=== PATIENT | male | born 1950 | race Caucasian/White ===

== ENCOUNTER → 2020-08-30 | Outpatient (CLI) | payer OTHER ==
[~2020-08-30] MED LIST: Alprazolam Xr0.5 MG PO; BENAML20/5; CALCA500CH PO; CAPS28.3TC TOP; FINA5 PO; FLAX PO; HYDCOR2.5C PR; HYDR1TAB94 PO; HYDR25SUP PR; LACT10SY PO; LISI20 PO; MULTI VITAMIN1 EACH PO; MULVITMIND; NAPR500 PO; Naprosyn500 MG PO; Norco 5-325 Ta1 EACH PO; TAMS.4ER PO; TOCO400 PO; TRAM50 PO; ULTRA-LIGHT RO1 EACH MC; Ultram50 MG PO; Vitamin C100 M1 PO; ZINC15 PO; [UNRECOGNIZED DRUG - REMARK]
== END | disposition home or self-care (01) ==
LOC: LAB SHORT 16:24
DX: N39.0 Urinary tract infection, site not specified (principal)
CPT/HCPCS: 87086

== ENCOUNTER → 2020-12-18 | Outpatient (CLI) | payer OTHER ==
[~2020-12-18] MED LIST changes: -HYDR1TAB94 PO
== END ==
LOC: LAB 17:35 → LAB SHORT 17:35
DX: R30.0 Dysuria (principal)
CPT/HCPCS: 87077; 87086; 87186

== ENCOUNTER 2021-03-03 14:44 | Emergency (ER) | payer OTHER ==
[~2021-03-03] VITALS: Ht 175.3 cm; Wt 78.0 kg
[2021-03-03] MEDS ORDERED: HYDR1TAB94 PO (16:41)
== END 2021-03-03 17:00 | disposition home or self-care (01) ==
LOC: ER 14:44
DX: S01.512A Laceration without foreign body of oral cavity, initial encounter (principal); S50.12XA Contusion of left forearm, initial encounter; Z79.899 Other long term (current) drug therapy; W01.10XA Fall on same level from slipping, tripping and stumbling with subsequent striking against unspecified object, initial encounter
CPT/HCPCS: 36415; 70450; 72125; 90714; 93005; 93010; 99284-25; A9270; J1885

== ENCOUNTER 2021-03-15 18:45 | Emergency (ER) | payer OTHER ==
[~2021-03-15] VITALS: Ht 175.3 cm; Wt 80.7 kg
[~2021-03-15 18:45] MED LIST changes: +HYDR1TAB94 PO
== END 2021-03-15 20:20 | disposition home or self-care (01) ==
LOC: ER 18:45
DX: F07.81 Postconcussional syndrome (principal); S00.83XA Contusion of other part of head, initial encounter; Z79.899 Other long term (current) drug therapy
CPT/HCPCS: 36415; 93005; 93010; 99285-25

== ENCOUNTER 2021-12-07 02:03 | Inpatient (IN) | payer OTHER ==
[~2021-12-07] VITALS: Ht 175.3 cm; Wt 73.4 kg
[~2021-12-07 02:03] MED LIST changes: +Calcium Carbon500 MG PO
[2021-12-07] MEDS ORDERED: METHOTREXATE2.5 M1 PO (02:24)
[2021-12-07 03:18] LABS: BASOPHILS ABSOLUTE AUTO 0.06 K/mm3 (0.00-0.23); BASOPHILS PERCENT AUTO 0 % (0-2); EOSINOPHILS ABSOLUTE AUTO 0.08 K/mm3 (0.00-0.68); EOSINOPHILS PERCENT AUTO 0 % (0-6); Hematocrit 31.8 % (37.0-53.0); Hemoglobin 10.5 g/dL (13.5-17.5); IMMATURE GRAN ABSOLUTE AUTO 0.22 K/mm3 (0.00-0.10); IMMATURE GRAN PERCENT AUTO 1 % (0-1); LYMPHOCYTES ABSOLUTE AUTO 0.92 K/mm3 (0.84-5.20); LYMPHOCYTES PERCENT AUTO 5 % (21-46); MONOCYTES ABSOLUTE AUTO 1.17 K/mm3 (0.16-1.47); MONOCYTES PERCENT AUTO 6 % (4-13); Mean Corpuscular HGB 30.3 pg (26.0-34.0); Mean Corpuscular Volume 92 fL (80-100); NEUTROPHILS ABSOLUTE AUTO 17.69 K/mm3 (1.96-9.15); NEUTROPHILS PERCENT AUTO 88 % (41-73); RDW Coefficient Variation 16.3 % (11.7-14.2); RDW Standard Deviation 53.4 fL (35.1-46.3); Red Blood Cell Count 3.46 M/mm3 (4.30-5.90); White Blood Cell Count 20.14 K/mm3 (4.00-11.30)
[2021-12-07 03:19] LABS: Mean Platelet Volume 9.5 fL (9.1-12.4); Platelet Count 504 K/mm3 (150-400)
[2021-12-07 03:36] LABS: Alanine Aminotransfer (ALT/SGP 31 U/L (12-78); Albumin, Blood 2.4 g/dL (3.4-5.0); Albumin/Globulin Ratio 0.4 (0.8-1.8); Alk Phos 95 U/L (50-136); Anion Gap 11 mmol/L (6-16); Aspartate Aminotrans (AST/SGOT 52 U/L (12-37); Bilirubin, Total 1.2 mg/dL (0.1-1.0); Blood Urea Nitrogen 11 mg/dL (8-24); Bun/Creatinine Ratio 12.2 (12.0-20.0); CO2, Blood 25 mmol/L (21-32); Calcium, Blood 9.2 mg/dL (8.5-10.1); Chloride, Blood 99 mmol/L (98-108); Globulin, Blood 5.9 g/dL (2.2-4.0); Glomerular Filtration Rate >60 (60-); Glucose, Blood 108 mg/dL (70-99); Potassium, Blood 3.3 mmol/L (3.5-5.5); Sodium, Blood 135 mmol/L (136-145); Total Protein, Blood 8.3 g/dL (6.4-8.2)
[2021-12-07 03:59] LABS: C-Reactive Protein, High Sens. >190.000 mg/L (0.000-3.000)
[2021-12-07 05:49] LABS: Influenza A, PCR NEGATIVE (NEGATIVE); Influenza B, PCR NEGATIVE (NEGATIVE); Resp Syncytial Virus, PCR NEGATIVE (NEGATIVE); SARS-Cov-2 (COVID-19) PCR, MMC NEGATIVE (NEGATIVE)
[2021-12-07 07:53] LABS: Anti-Xa UFH, PHA Monitoring <0.10 IU/mL; International Normalized Ratio 1.36
--- NOTE | 2021-12-07 09:45 | NUR ---
PT ADMITTED TO ROOM 363 VIA GURNEY FROM ED. ASSISTED TO COMMODE ON ARRIVAL AND CLEANED UP. HAD A SMALL AMOUNT OF LOOSE STOOL. STATED HE NEEDED TO VOID BUT NO VOID ON COMMODE. ASSISTED TO BED AND SETTLED IN. BREAKFAST GIVEN AND EATEN. REPORTED HE FELT BETTER AFTER EATING. STATED HE HASN'T EATEN MUCH IN LAST SEVERAL DAYS/WEEKS DUE TO NOT HAVING ANYTHING TO EAT OTHER THAN BANANA NUT MUFFINS FROM THE [employer] HE LIVES AT. BUTTOCKS APPEARED BURNED ON ARRIVAL TO DUE UNDERWEAR BEING DIRTY FROM STOOL.
[2021-12-07 11:13] LABS: Source, Urine Clean Catch
[2021-12-07 11:23] LABS: Appearance, Urine Clear (Clear); Bilirubin, Urine Neg (Neg); Blood, Urine 1+ (Neg); Color, Urine Yellow (P-Yellow); Glucose Qualitative, Urine Neg (Neg); Ketones, Urine Neg (Neg); Leukocyte Esterase, Urine 1+ (Neg); Nitrite, Urine Neg (Neg); Protein, Urine 2+ (Neg); Urobilinogen, Urine 1+ (Normal)
[2021-12-07 11:33] LABS: Bacteria Mod /hpf; Red Blood Cells, Urine 0-2 /hpf (0-2); Squamous Epithelial Cells Many /hpf (Few)
[2021-12-07] MEDS ORDERED: GALZIN50 MG PO (11:41)
--- NOTE | 2021-12-07 19:28 | NUR ---
SHIFT SUMMARY PT USING URINAL DURING THE DAY. VOIDING ONLY 100-150ML AT A TIME. BLADDER SCANNED THIS EVENING FOR >973. STOOD TO VOID MORE BUT ONLY VOIDED 100ML. DARK CATRACHITA URINE OUT. R HEEL DRAINING SEROSANGUINESS THRUGH DRESSING AND WAS CHANGED. REPORTS HE HASN'T EATEN MUCH IN LAST SEVERAL WEEKS DUE TO INABILITY TO OBTAIN FOOD SO HE DOESN'T HAVE A BIG APPETITE. DR. RAMIREZ IN THIS MORNING WITH PLANS TO I AND D R HEEL TOMORROW. HEPARIN UNCHANGED AFTER AFTERNOON BLOOD DRAW.
--- NOTE | 2021-12-08 04:43 | NUR ---
PT IS A/OX3, PLEASANT AND COOPERATIVE, PALE IN COLOR. THE PT APPEARS TO BE BREATHING EASILY ON RA AT THIS TIME. THE PT WAS MEDICATED FOR BACK PAIN WITH TYLENOL X1 SO FAR THIS SHIFT. THE PT WAS STRAIGHT CATHED DUE TO RETENTION AT THE START OF THE SHIFT, 1100 CC DRAINED. PT WAS MADE NPO AFTER MIDNIGHT. CALL LIGHT IN REACH, WILL CONTINUE TO MONITOR AND ASSESS FOR CHANGES.
[2021-12-08 06:20] LABS: BASOPHILS ABSOLUTE AUTO 0.02 K/mm3 (0.00-0.23); BASOPHILS PERCENT AUTO 0 % (0-2); EOSINOPHILS ABSOLUTE AUTO 0.11 K/mm3 (0.00-0.68); EOSINOPHILS PERCENT AUTO 1 % (0-6); Hematocrit 24.3 % (37.0-53.0); Hemoglobin 8.4 g/dL (13.5-17.5); IMMATURE GRAN ABSOLUTE AUTO 0.19 K/mm3 (0.00-0.10); IMMATURE GRAN PERCENT AUTO 1 % (0-1); LYMPHOCYTES ABSOLUTE AUTO 1.43 K/mm3 (0.84-5.20); LYMPHOCYTES PERCENT AUTO 10 % (21-46); MONOCYTES ABSOLUTE AUTO 0.71 K/mm3 (0.16-1.47); MONOCYTES PERCENT AUTO 5 % (4-13); Mean Corpuscular HGB 30.8 pg (26.0-34.0); Mean Corpuscular HGB Conc 34.6 g/dL (31.5-36.5); Mean Corpuscular Volume 89 fL (80-100); Mean Platelet Volume 9.3 fL (9.1-12.4); NEUTROPHILS ABSOLUTE AUTO 12.04 K/mm3 (1.96-9.15); NEUTROPHILS PERCENT AUTO 83 % (41-73); Platelet Count 470 K/mm3 (150-400); RDW Coefficient Variation 16.3 % (11.7-14.2); RDW Standard Deviation 51.9 fL (35.1-46.3); Red Blood Cell Count 2.73 M/mm3 (4.30-5.90)
[2021-12-08 06:35] LABS: Anion Gap 6 mmol/L (6-16); Blood Urea Nitrogen 13 mg/dL (8-24); Bun/Creatinine Ratio 17.2 (12.0-20.0); CO2, Blood 26 mmol/L (21-32); Calcium, Blood 8.5 mg/dL (8.5-10.1); Chloride, Blood 108 mmol/L (98-108); Creatinine, Blood 0.76 mg/dL (0.60-1.20); Glomerular Filtration Rate >60 (60-); Glucose, Blood 97 mg/dL (70-99); Sodium, Blood 140 mmol/L (136-145)
[2021-12-08 17:03] LABS: Vancomycin, Trough 13.5 ug/mL (5.0-10.0)
--- NOTE | 2021-12-08 17:05 | NUR ---
SHIFT SUMMARY PT NPO TODAY INTIL IT WAS KNOWN THAT I AND D OF R HEEL WASN'T GOING TO BE COMPLETED BUT RATHER A RBKA WAS RECOMMENDED BY PODIATRY. ORTHO CONSULT CALLED IN TO CALL CENTER. PT REPORTING HE IS SO TIRED AND DOESN'T FEEL WELL. DRESSING INTACT TO RLE WITH NO BREAKTHROUGH DRAINAGE. HASN'T VOIDED TODAY AND BLADDER SCANNED FOR 401ML. HASN'T BEEN DRINKING TODAY DUE TO NPO STATUS. MD ORDERED HUFFMAN TO STAY WITH NEXT STRAIGHT CATH. PT REPORTS MOTHER IS COMING IN WITH ONE OF THE WORKERS AT THEIR [employer] SOMETIME THIS EVENING. DOES HAVE A TENDANCY TO REPEAT HIMSELF FREQUENTLY.
[2021-12-08 17:58] LABS: Source, Urine Foley catheter
[2021-12-08 18:12] LABS: Bilirubin, Urine Neg (Neg); Blood, Urine 4+ (Neg); Color, Urine Yellow (P-Yellow); Glucose Qualitative, Urine Neg (Neg); Ketones, Urine Neg (Neg); Leukocyte Esterase, Urine Neg (Neg); Nitrite, Urine Neg (Neg); Protein, Urine 4+ (Neg); Urobilinogen, Urine NORM (Normal); pH, Urine 6.5 (5.0-8.0)
[2021-12-08 18:20] LABS: Appearance, Urine Hazy (Clear)
[2021-12-08 18:21] LABS: Bacteria Mod /hpf; Squamous Epithelial Cells Few /hpf (Few)
[2021-12-09 04:29] LABS: BASOPHILS ABSOLUTE AUTO 0.04 K/mm3 (0.00-0.23); BASOPHILS PERCENT AUTO 0 % (0-2); EOSINOPHILS PERCENT AUTO 2 % (0-6); Hematocrit 22.9 % (37.0-53.0); Hemoglobin 7.8 g/dL (13.5-17.5); IMMATURE GRAN ABSOLUTE AUTO 0.19 K/mm3 (0.00-0.10); IMMATURE GRAN PERCENT AUTO 2 % (0-1); LYMPHOCYTES PERCENT AUTO 14 % (21-46); MONOCYTES ABSOLUTE AUTO 0.55 K/mm3 (0.16-1.47); MONOCYTES PERCENT AUTO 5 % (4-13); Mean Corpuscular HGB 30.7 pg (26.0-34.0); Mean Corpuscular HGB Conc 34.1 g/dL (31.5-36.5); Mean Corpuscular Volume 90 fL (80-100); Mean Platelet Volume 9.5 fL (9.1-12.4); NEUTROPHILS ABSOLUTE AUTO 9.64 K/mm3 (1.96-9.15); NEUTROPHILS PERCENT AUTO 78 % (41-73); Platelet Count 502 K/mm3 (150-400); RDW Coefficient Variation 16.6 % (11.7-14.2); RDW Standard Deviation 54.3 fL (35.1-46.3); Red Blood Cell Count 2.54 M/mm3 (4.30-5.90); White Blood Cell Count 12.32 K/mm3 (4.00-11.30)
[2021-12-09 04:43] LABS: Anion Gap 8 mmol/L (6-16); Blood Urea Nitrogen 10 mg/dL (8-24); Bun/Creatinine Ratio 14.5 (12.0-20.0); CO2, Blood 22 mmol/L (21-32); Calcium, Blood 8.1 mg/dL (8.5-10.1); Chloride, Blood 111 mmol/L (98-108); Creatinine, Blood 0.69 mg/dL (0.60-1.20); Glomerular Filtration Rate >60 (60-); Glucose, Blood 96 mg/dL (70-99); Potassium, Blood 3.2 mmol/L (3.5-5.5); Sodium, Blood 141 mmol/L (136-145)
--- NOTE | 2021-12-09 07:54 | NUR ---
PM SHIFT SUMMARY PATIENT DID NOT HAVE MANY NEEDS DURING SHIFT. HUFFMAN IN PLACE AND DRAINING EFFECTIVELY. HEPARIN DRIP WAS INCREASED TO 24 U/KG/HR. ORTHOPEDIC SURGEON WILL BE BY TO SPEAK WITH HIM TODAY ABOUT THE BKA PROCEDURE. PATIENT LIVES AT [facility] WITH HIS 93 YEAR OLD MOTHER, SO HE WILL NEED MORE CARE AFTER SURGERY. HE SLEPT VAST MAJORITY OF SHIFT.
[2021-12-09 12:45] LABS: International Normalized Ratio 1.19; Prothrombin Time Results 12.4 Sec (9.7-11.5)
--- NOTE | 2021-12-09 14:07 | NUR ---
12/09/21 1407 Charity Queen 950ML REMOVED FROM HUFFMAN CATHETER AT ROOM IN
--- NOTE | 2021-12-09 19:50 | NUR ---
1522 RETURNED FROM PACU, SLEEPY BUT AROUSES EASILY. [address] GOULD WHO WILL ORDER PAIN MEDS. I MADE CALL TO DR REDDY, SHE STATES SHE WOULD CALL DR GOULD TO ADRESS RESTARTING HEPARIN GTT. PLAN TO START TOMORROW. STUMP IS WRAPPED WITH NO SHADOW. PT STATES PAIN 8/10 BUT FELL ASLEEP WITHIN MINUTES. WILL ARGENIS FOR PAIN. CALLED HIS MOM AT [facility] AND UPDATED PER PT REQUEST.
--- NOTE | 2021-12-09 19:53 | NUR ---
SUMMARY- PT A/O X4, HAD R BKA TODAY WITH DR REDDY. RETURNED TO ROOM AT 1522, BP ELEVATED BUT CAME DOWN NICELY WITHIN HOURS. MEDICATED LORTAB FOR PAIN, STATES PARTIAL RELEIF OF 710. TOLERATING FLUIDS AND A FEW BITES OF SOLIDS. NO NAUSEA. REQ FOR PRUNE JUICE. STATES HAST BM A FEW DAYS AGO. LUNGS CLEAR, ROOM AIR. USES CALL LIGHT. LEG ELEVATED WHEN HE DOESNT REQ HIS HEAD UP; REPORTED ALL TO NIGHT SHIRT. DVT RUL, PLAN TO RESTART HEPARIN TOMORROW.
[2021-12-10 04:18] LABS: BASOPHILS ABSOLUTE AUTO 0.01 K/mm3 (0.00-0.23); BASOPHILS PERCENT AUTO 0 % (0-2); EOSINOPHILS ABSOLUTE AUTO 0.01 K/mm3 (0.00-0.68); EOSINOPHILS PERCENT AUTO 0 % (0-6); Hematocrit 23.7 % (37.0-53.0); Hemoglobin 7.9 g/dL (13.5-17.5); IMMATURE GRAN ABSOLUTE AUTO 0.21 K/mm3 (0.00-0.10); IMMATURE GRAN PERCENT AUTO 2 % (0-1); LYMPHOCYTES ABSOLUTE AUTO 1.14 K/mm3 (0.84-5.20); LYMPHOCYTES PERCENT AUTO 11 % (21-46); MONOCYTES ABSOLUTE AUTO 0.48 K/mm3 (0.16-1.47); MONOCYTES PERCENT AUTO 4 % (4-13); Mean Corpuscular HGB Conc 33.3 g/dL (31.5-36.5); Mean Corpuscular Volume 90 fL (80-100); Mean Platelet Volume 9.5 fL (9.1-12.4); NEUTROPHILS ABSOLUTE AUTO 8.94 K/mm3 (1.96-9.15); NEUTROPHILS PERCENT AUTO 83 % (41-73); Platelet Count 508 K/mm3 (150-400); RDW Standard Deviation 55.3 fL (35.1-46.3); RETICULOCYTE COUNT PERCENT 0.93 % (0.50-2.50); Red Blood Cell Count 2.63 M/mm3 (4.30-5.90); White Blood Cell Count 10.79 K/mm3 (4.00-11.30)
[2021-12-10 05:16] LABS: Anion Gap 6 mmol/L (6-16); Blood Urea Nitrogen 10 mg/dL (8-24); Bun/Creatinine Ratio 13.4 (12.0-20.0); CO2, Blood 24 mmol/L (21-32); Calcium, Blood 8.2 mg/dL (8.5-10.1); Chloride, Blood 112 mmol/L (98-108); Creatinine, Blood 0.75 mg/dL (0.60-1.20); Glomerular Filtration Rate >60 (60-); Glucose, Blood 130 mg/dL (70-99); Potassium, Blood 3.4 mmol/L (3.5-5.5); Sodium, Blood 142 mmol/L (136-145)
--- NOTE | 2021-12-10 05:43 | NUR ---
CIVIL ENGINEERING ASSISTANT SUMMARY PT IS ZERO DAYS POST RIGHT BKA. AMPUTATION STOCKING IN PLACE AND C/D/I. PT REPORTS 8/10 PAIN TO THE RIGHT LOWER EXTREMITY THAT IS IMPROVED WITH OXYCODONE AND ELEVATING THE LIMB ON A PILLOW. PT MEDICATED X2 FOR PAIN AND HAS BEEN SLEEPING THROUGHOUT THE SHIFT. HE IS RECEIVING IV ABX THERAPY. ALERT AND ORIENTED X4 WHEN AWAKE BUT HAS BEEN SOMNOLENT AFTER PAIN MEDICATION. HUFFMAN IN PLACE AND DRAINING CLEAR YELLOW URINE. PT ALSO HAS DVT TO THE RIGHT UPPER LEG AND WILL BE RESTARTED ON HEPARIN DRIP 12/10/21 ACCORDING TO REPORT FROM PREVIOUS NURSE. HE IS TOLERATING FRUIT AND APPLE SAUCE WITHOUT NAUSEA.
--- NOTE | 2021-12-10 10:24 | NUR ---
Patient gaave this pharmacy student permission to perform care.
[2021-12-10 16:52] LABS: Vancomycin, Trough 15.6 ug/mL (5.0-10.0)
--- NOTE | 2021-12-10 20:03 | NUR ---
SUMMARY- PT ALERT X3, FORGETFUL, REPEATS HIMSELF. R BKA 12/09, SURGICAL DRESSING INTACT WITH SLEAVE OVER STUMP WITH NO VISIBLE DRAINAGE. DR MC AT BEDSIDE APPROX 1630 TO EVAL WOUND AND CHANGE DRESSING. PT WORKED WITH PT/OT TODAY. L LEG WEAK AND NOT ADVISED TO STAND EXCEPT WITH GARRETT LIFT. HEPARIN GTT RESTARTED THIS PM. PAIN CONTROLLED WITH LORTAB 10'S. HUFFMAN DC'D 0930 AND PT DID NOT FEEL THE NEED TO VOID ALL DAY. WHEN ASKED TO TRY 1800 HE WAS UNABLE. WILL BLADDER SCAN PRN AND ST CATH >300ML. PT'S MOM THAT WAS LIVING AT [place] [id number] WAS PICKED UP TODAY BY PT'S MEDINA AND TAKEN TO [place] WHERE SHE CAN BE CARED FOR. HEALTH CARE TECHNICIAN PLACED IN HOPES THAT FAMILY CAN BE GIVEN RESOURCES FOR INCREASED ASSISTANCE AFTER PT REHABILITATED AND SON CAN AGAIN LIVE WITH MOM IN REGULAR HOUSIHNG. HAS MONEY, BUT NEEDS ASSIST WITH RESOURCES.
--- NOTE | 2021-12-11 05:03 | NUR ---
PRODUCTION RECOVERY OPERATOR SUMMARY PT HAVING DIFFICULTY URINATING. BLADDER SCAN PERFORMED AT START OF SHIFT SHOWING 788. PT WAS STRAIGHT CATHED WITH 700 ML OF OUTPUT. HE CONTINUES TO BE UNABLE TO URINATE DESPITE MULTIPLE TRIES. HE REPORTS CONTINUED PAIN TO THE RLE MANAGED WITH HYDROCODONE AND TYLENOL. PT HAS DIFFICULTY REPOSITIONING AND APPEARS UPSET ABOUT HIS BKA. ALERT AND ORIENTED. COOPERATIVE WITH INSTRUCTION BUT FLAT AFFECT. UPSET AT TIMES AND APPEARS HOPELESS.
[2021-12-11 08:13] LABS: Hematocrit 26.7 % (37.0-53.0)
[2021-12-11 13:21] LABS: Stool Occult Blood Guaiac 1 Neg (Neg)
--- NOTE | 2021-12-11 20:01 | NUR ---
END OF SHIFT SUMMARY: PATIENT CONTINUED TO HAVE DIFFICULTY WITH VOIDING THROUGHOUT THE DAY. [place] [facility] [place] VOID ABOUT 25ML INTO THE URINAL. OTHERWISE, PATIENT REQUIRED STRAIGHT CATHETERIZATION. HOME MEDICATIONS RESTARTED TO ASSIST. PATIENT WORKED WITH PT AND OT. PATIENT DENIED APPETITE IN THE MORNING, BUT ATE ALMOST HIS FULL DINNER. PATIENT'S NIECE (JENNY: [phone]) IS WATCHING THE PATIENT'S 93 Y/O. SHE HAS CONCERNS ABOUT THIS SITUATION AND REPORTS THAT SHE WILL NOT BE ABLE TO CARE FOR HER AUNT FOR A LONG TIME. THE PATIENT REPORTS THAT HE WOULD LIKE TO BE ABLE TO BE PLACED WITH HIS MOTHER IN A FACILITY IF ABLE. PATIENT REPORTED THIS MORNING THAT HIS HEAD WAS FEELING "FUZZY". PATIENT AT TIMES WOULD REPEAT HIS STATEMENTS AND SEEM TO PERSEVERATE ON CERTAIN THINGS, SUCH "I JUST NEED TO GET ORGANIZED". PATIENT ABLE TO DISCUSS HIS CARE, PLAN OF CARE, HEALTH HISTORY, FOLLOW DIRECTIONS AND LET HIS NEEDS BE KNOWN. PATIENT REPORTED TO RN THAT HE IS AT HIS BASELINE AND THAT HE DOES REPEAT HIMSELF LIKE THIS. MONITORED THROUGHOUT THE DAY. NO CHANGES TO NEURO STATUS. PATIENT'S MENTATION IMPROVED THROUGHOUT THE DAY. PATIENT HAVING CLEAR CONVERSATIONS WITH THE RN ABOUT HIS PAST AND HIS WISHES FOR THE FUTURE.
--- NOTE | 2021-12-12 01:16 | NUR ---
BLADDER SCAN PERFORMED AT APPROX 0015, READ 726ML. ENCOURAGED PATIENT TO TRY TO URINATE, PT UNABLE TO. STRAIGHT CATH PERFORMED AT THAT TIME.
--- NOTE | 2021-12-12 01:27 | NUR ---
RECEIVED REPORT AND ASSUMED CARE OF PT. HE IS LYING IN BED, AWAKE AND ALERT. REPORTS FEELING SIGNIFICANTLY BETTER AFTER 750 ML OUT VIA STRAIGHT CATH. CALL LIGHT IN REACH. TM.
--- NOTE | 2021-12-12 06:28 | NUR ---
SHIFT SUMMARY: DAVID IS A&OX4 WITH SOME EPISODES OF FIXATING ON STATEMENTS AND DIFFICULTY MOTIVATING SELF TO DO TASKS THAT HE REPORTS BEING FEARFUL OF, SUCH MOVING TO THE BEDSIDE COMMODE. HE IS A HEAVY TWO-PERSON ASSIST TO THE BEDSIDE COMMODE, DOES NOT FOLLOW DIRECTIONS. UNABLE TO URINATE THIS AM OR HAVE A BM, BLADDER SCAN SHOWS 876. WILL STRAIGHT CATH. TOLERATING PO INTAKE WELL, REPORTS DECREASED APPETITE. PT DECONDITIONED. PT IS LYING IN BED WITH HIS CALL LIGHT IN REACH. WILL REPORT TO DAY SHIFT RN.
--- NOTE | 2021-12-12 07:00 | NUR ---
ASSUMED CARE: RN AT BEDSIDE PLACING STRAIGHT CATH. PT ALERT AND DOES NOT SEEM TO BE IN ANY DISTRESS AT THIS TIME.
[2021-12-12 07:25] LABS: Hematocrit 26.5 % (37.0-53.0); Hemoglobin 8.8 g/dL (13.5-17.5)
--- NOTE | 2021-12-12 07:40 | NUR ---
ASSUMED CARE: PT IS AWAKE, RN AT BEDSIDE FOR STRAIGHT CATH. NSR OF 65 ON TELE. NO ACUTE NEEDS/DISTRESS AT THIS TIME
--- NOTE | 2021-12-12 08:03 | NUR ---
PT C/O STINGING FROM URETHRA AFTER STRAIGHT CATH WAS DONE. HUFFMAN BAG WAS CONNECTED FOR DRAINAGE. PT STATES HE DOES NOT HAVE TO STRAIGHT CATH AT HOME AND IT IS JUST SINCE HE'S BEEN HERE. EXPLAINED TO HIM THAT EVERY TIME HE GETS STRAIGHT CATHED, IT IS LIKELY CAUSING INFLAMMATION AND THE MORE WE KEEP DOING IT THE MORE INFLAMMED HE WILL BE, CAUSING DIFFICULTY URINATING. PT STATED TO JUST KEEP CATHETER IN PLACE UNTIL WE DISCUSS FURTHER WITH DOCTOR. WAX COATING MACHINE TENDER REMAINS AT BEDSIDE
--- NOTE | 2021-12-12 08:30 | NUR ---
REVIEWED STUDENT'S HEAD TO TOE ASSESSMENT AND AGREE
--- NOTE | 2021-12-12 09:02 | NUR ---
DR GOULD CAME TO SEE PT AND STATED THAT IT WAS OK TO LEAVE HUFFMAN IN PLACE AND START BLADDER TRAINING. PT AGREED TO THIS PLAN AND STATED HE DID NOT WANT ANYMORE TRAUMA TO HIS PROSTATE. TRAVELING REPRESENTATIVE AT BEDSIDE AT THIS TIME.
[2021-12-12 10:00] LABS: Source, Urine Clean Catch
[2021-12-12 10:16] LABS: Appearance, Urine Clear (Clear); Bilirubin, Urine Neg (Neg); Blood, Urine 1+ (Neg); Color, Urine Yellow (P-Yellow); Glucose Qualitative, Urine Neg (Neg); Ketones, Urine Neg (Neg); Leukocyte Esterase, Urine Neg (Neg); Nitrite, Urine Neg (Neg); Protein, Urine Neg (Neg); Urobilinogen, Urine NORM (Normal)
[2021-12-12 10:22] LABS: Bacteria Rare /hpf; Red Blood Cells, Urine 0-2 /hpf (0-2); Squamous Epithelial Cells Rare /hpf (Few); White Blood Cells, Urine 0-2 /hpf (0-5)
--- NOTE | 2021-12-12 10:42 | NUR ---
APPLIED CLAMP TO HUFFMAN CATHETER TUBING, WILL REMAIN IN PLACE FOR TWO HOURS TO BLADDER TRAIN. PT UNERSTOOD PROCESS AND DID NOT HAVE QUESTIONS OR CONCERNS AT THIS TIME.
--- NOTE | 2021-12-12 14:08 | NUR ---
DR REDDY CAME TO CHECK SUTURE LINE AND CHANGE DRESSING, SITE WAS CLEAN/DRY WITHOUT REDNESS/SWELLING, JAIME WERE IN PLACE. GAUZE, SHERLY WRAP, AND STUMP SOCK APPLIED TO AREA.
--- NOTE | 2021-12-12 17:17 | NUR ---
SHIFT SUMMARY: PT IS A&OX4 AND IS ABLE TO FOLLOW DIRECTIONS WITH MODERATE ASSISTANCE. PT STATES HIS ANXIETY HAS LESSENED WITH THE PLACEMENT OF HUFFMAN CATHETER. BLADDER TRAINING HAS BEEN CONTINUED IN 2 HOUR CLAMPED/30 MINUTE UNCLAMPED INTERVALS THROUGHOUT SHIFT. WOUND DRESSING WAS CHANGED AND REMAINS CLEAN/DRY/STUMP SOCK IN PLACE. PT IS TOLERATING PO INTAKE WELL AND CALLS APPROPRIATELY WHEN NEEDED. PT IS NSR AT RATE OF 63 ON TELE.
--- NOTE | 2021-12-13 04:57 | NUR ---
PT IS A/OX3. TELE: SR/70. HUFFMAN CATH IS PATENT W/ YELLOW & CLEAR OUTPUT. BKA DRESSING CHANGED 12/12. PT IS A PLACEMENY AT THIS TIME. PT HAS 650 MG TYLENOL PRN FOR PAIN. PT HAS CALL LIGHT WITHINN REACH AND WE'LL KEEP MONITORING.
[2021-12-13 05:50] LABS: BASOPHILS ABSOLUTE AUTO 0.09 K/mm3 (0.00-0.23); BASOPHILS PERCENT AUTO 1 % (0-2); EOSINOPHILS ABSOLUTE AUTO 0.25 K/mm3 (0.00-0.68); EOSINOPHILS PERCENT AUTO 2 % (0-6); Hematocrit 26.1 % (37.0-53.0); Hemoglobin 8.8 g/dL (13.5-17.5); IMMATURE GRAN ABSOLUTE AUTO 0.46 K/mm3 (0.00-0.10); IMMATURE GRAN PERCENT AUTO 4 % (0-1); LYMPHOCYTES ABSOLUTE AUTO 1.64 K/mm3 (0.84-5.20); LYMPHOCYTES PERCENT AUTO 15 % (21-46); MONOCYTES ABSOLUTE AUTO 0.66 K/mm3 (0.16-1.47); MONOCYTES PERCENT AUTO 6 % (4-13); Mean Corpuscular HGB 30.3 pg (26.0-34.0); Mean Corpuscular HGB Conc 33.7 g/dL (31.5-36.5); Mean Corpuscular Volume 90 fL (80-100); Mean Platelet Volume 9.1 fL (9.1-12.4); NEUTROPHILS ABSOLUTE AUTO 7.96 K/mm3 (1.96-9.15); NEUTROPHILS PERCENT AUTO 72 % (41-73); NRBC ABSOLUTE 0.02 K/mm3 (0.00-0.02); NRBC Auto 0.2 /100 WBC (0.0-0.2); Platelet Count 579 K/mm3 (150-400); RDW Coefficient Variation 17.8 % (11.7-14.2); RDW Standard Deviation 56.1 fL (35.1-46.3); White Blood Cell Count 11.06 K/mm3 (4.00-11.30)
[2021-12-13 06:10] LABS: Anion Gap 6 mmol/L (6-16); Blood Urea Nitrogen 5 mg/dL (8-24); Bun/Creatinine Ratio 8.2 (12.0-20.0); CO2, Blood 29 mmol/L (21-32); Calcium, Blood 8.1 mg/dL (8.5-10.1); Chloride, Blood 106 mmol/L (98-108); Creatinine, Blood 0.61 mg/dL (0.60-1.20); Glomerular Filtration Rate >60 (60-); Glucose, Blood 90 mg/dL (70-99); Sodium, Blood 141 mmol/L (136-145)
--- NOTE | 2021-12-13 09:00 | NUR ---
PT CALM AND COOPERATIVE. VERY TIRED. A/O X4. DENIES PAIN. ON TELE. NSR IN 70'S PER TRANSPORT AIRCREWMAN. NO MURMURS. LUNGS CLEAR BILATERALLY. BREATHING IS EASY AND UNLABORED. BOWEL SOUNDS ACTIVE IN ALL FOUR QUADRANTS. NO BOWEL MOVEMENT FOR 2 DAYS. HAS HUFFMAN CATHETER IN PLACE AT THIS TIME. NO PAIN TO THE LOWER EXTEMITIES. NO PURULENT DRAINAGE SHOWN ON DRESSING OF RT BKA. BED IN LOW POSITION, CALL LIGHT IN REACH, CALLS APPROPRIATELY.
--- NOTE | 2021-12-13 15:32 | NUR ---
PT STATES NO BOWEL MOVEMENT IN 3 DAYS. GIVEN [employer].
--- NOTE | 2021-12-13 18:22 | NUR ---
PT COOPERATIVE AND PLEASANT. A/O X3-4. DENIES PAIN. D/C TELE PER PROVIDER. REGULAR IN THE 60'S. NO MURMURS. LUNGS CLEAR BILATERALLY. BREATHING IS EASY AND UNLABORED ON ROOM AIR. BOWEL SOUNDS ACTIVE IN ALL FOUR QUADRANTS. PT STATES NO BOWEL MOVEMENT IN 2 DAYS. MEDICATED PER EMAR. NO RESULT, GIVEN BROWN COW. HAS HUFFMAN CATHETER IN PLACE THAT IS DRAINING TO GRAVITY. WORKED WITH PT AND OT TODAY. CAN MOVE TO THE SIDE OF THE BED WITH HELP. CALL LIGHT IN REACH, BED IN LOW POSITION, CALLS APPROPRIALTY.
--- NOTE | 2021-12-14 05:01 | NUR ---
SUMMARY PT REPORTED HAVING TROUBLE SLEEPING AND MELATONIN WAS ORDERED. PT HAS BEEN ABLE TO SLEEP WELL THIS SHIFT. PT HAD NO PAIN ISSUES NOTED. PT HUFFMAN DRAINING TO GRAVITY. CALL LIGHT IN REACH.
[2021-12-14 05:22] LABS: BASOPHILS ABSOLUTE AUTO 0.08 K/mm3 (0.00-0.23); BASOPHILS PERCENT AUTO 1 % (0-2); EOSINOPHILS PERCENT AUTO 2 % (0-6); Hematocrit 27.3 % (37.0-53.0); Hemoglobin 9.1 g/dL (13.5-17.5); IMMATURE GRAN ABSOLUTE AUTO 0.32 K/mm3 (0.00-0.10); IMMATURE GRAN PERCENT AUTO 3 % (0-1); LYMPHOCYTES ABSOLUTE AUTO 1.72 K/mm3 (0.84-5.20); LYMPHOCYTES PERCENT AUTO 15 % (21-46); MONOCYTES ABSOLUTE AUTO 0.68 K/mm3 (0.16-1.47); MONOCYTES PERCENT AUTO 6 % (4-13); Mean Corpuscular HGB 30.2 pg (26.0-34.0); Mean Corpuscular HGB Conc 33.3 g/dL (31.5-36.5); Mean Corpuscular Volume 91 fL (80-100); Mean Platelet Volume 9.1 fL (9.1-12.4); NEUTROPHILS ABSOLUTE AUTO 8.42 K/mm3 (1.96-9.15); NEUTROPHILS PERCENT AUTO 74 % (41-73); NRBC ABSOLUTE 0.02 K/mm3 (0.00-0.02); NRBC Auto 0.2 /100 WBC (0.0-0.2); Platelet Count 548 K/mm3 (150-400); RDW Coefficient Variation 17.9 % (11.7-14.2); RDW Standard Deviation 57.4 fL (35.1-46.3); Red Blood Cell Count 3.01 M/mm3 (4.30-5.90); White Blood Cell Count 11.42 K/mm3 (4.00-11.30)
[2021-12-14 05:37] LABS: Anion Gap 3 mmol/L (6-16); Blood Urea Nitrogen 7 mg/dL (8-24); CO2, Blood 29 mmol/L (21-32); Calcium, Blood 8.2 mg/dL (8.5-10.1); Chloride, Blood 106 mmol/L (98-108); Glomerular Filtration Rate >60 (60-); Glucose, Blood 96 mg/dL (70-99); Potassium, Blood 3.7 mmol/L (3.5-5.5); Sodium, Blood 138 mmol/L (136-145)
--- NOTE | 2021-12-14 09:00 | NUR ---
PT AWAKE A/O X3 STATES SOME DEPRESSED. REQUEST CONSULT. GAVE REQUEST TO DR CAMPBELL. DENIES PAIN, THEN LATER STATES SOME PAIN. MED PER EMAR. LUNGS CLEAR RESP EASY, UNLABORED, ON R/A. BT X4 LAST BM 2-3 DAYS PER PT. MED PER EMAR. VOIDS HUFFMAN CATH. YELLOW FLUID DRAINING. RT BKA. NO NOTES FOR DRESSING CHANGES. WILL ATTEMPT CONTACT TO SEE IF ORDERS. BED IN LOW POSITION, CALL LITE IN REACH, CALLS APROP
--- NOTE | 2021-12-14 10:08 | NUR ---
PT CALM AND HAS A FLAT AFFECT. REQUESTED TO TALK TO PSYCH HE IS DEPRESSED ABOUT HIS AMPUTATION AND WORRIED ABOUT HIS MOM. DR CAMPBELL AT BEDSIDE NOW AND AWARE OF THIS REQUEST. A/O X3. WAS MEDICATED PER EMAR FOR PAIN WHEN HE GOT UP FOR BREAKFAST. PT STATES HE STILL HAS NOT HAD A BOWEL MOVEMENT IN 3 DAYS. MEDICATED PER EMAR. CHRONIC CATHETER IN PLACE, DRAINING TO GRAVITY. BANDAGE ON RT BKA. NO ORDER FROM PROVIDER AT THIS TIME, WILL CHECK ON THIS. BED IN LOW POSITION, CALL LIGHT IN PLACE, CALLS APPROPRIATLY.
--- NOTE | 2021-12-14 10:30 | NUR ---
SPOKE TO DR CAMPBELL RE PT REQUEST PSYCH CONSULT. HE TO MAKE ORDERS.
--- NOTE | 2021-12-14 11:31 | NUR ---
CALLED DR REDDY RE WOUND. SLIGHT DRAINAGE THRU DRESSINGS. SAYS IS OKAY REDRESS TODAY TO KEEP CLEAN. BELIEVES 4X4, DRY, KERLEX, MAYBE SHERLY, REQUEST TO KEEP SAME IS ON PT NOW.
--- NOTE | 2021-12-14 15:01 | NUR ---
PT NOT HAD B/M FEW DAYS. CALLED DR CAMPBELL. ORDERS FOR BOWEL CARE GIVEN.
--- NOTE | 2021-12-14 18:40 | NUR ---
PT FLAT IN AFFECT. STATES HE IS DEPRESSED ABOUT HIS AMPUTATION AND LEAVING HIS MOTHER. A/O X3. H/R REGULAR IN 70'S. NO TELE. NO MURMUR NOTED. LUNG SOUNDS CLEAR BILATERALLY. PT STATES NO BOWEL MOVMENT, AIDE AGREED. NEW ORDERS FOR BOWEL PROTOCOL ENTERED. HUFFMAN CATHETER IN PLACE, DRAINING TO GRAVITY. GENERALIZED WEAKNESS AND VERY TIRED. NO C/O PAIN AT THIS TIME. BED IN LOW POSITION, CALL LIGHT IN PLACE, CALLS APPROPRIALTY.
--- NOTE | 2021-12-15 05:07 | NUR ---
SHIFT SUMMARY: PT IS A/OX4. HUFFMAN CATH IS PATENT W/ CLEAR & YELLOW URINE. PT HAD NO C/O OF PAIN, RT BKA DRESSING IS INTACT. PT DID NOT HAVE A BM THIS SHIFT, BUT STATES HE'S PASSING LOTS OF GAS. BOWEL MEDS GIVEN. NO C/O PAIN AND WE'LL CONTIUE TO MONITOR.
--- NOTE | 2021-12-15 08:00 | NUR ---
PT PLEASANT THIS MORNING. STATES PAIN IN LEG. RT BKA/ CDI AT THIS TIME. MED PER EMAR. H/R REG, NO MURMER NOTED. NO TELE. LUNGS CLEAR, RESP EASY, UNLABORED. ON R/A. BT X4 LAST BM 3 PLUS DAYS PER PT. MED PER EMAR. STATES WILL HAVE BETTER TIME IF CAN USE BSC. PT TO FOLLOW. VOIDS HUFFMAN, DARK YELLOW FLUID DRAINING. NO OTHER CONCERNS NOTED. BED IN LOW POSITION, CALL LITE IN REACH, CALLS APPROP
--- NOTE | 2021-12-15 16:53 | NUR ---
PT PLEASANT TODAY. MED FOR BM TODAY. NO RESULTS YET. IS SITTING UP FOR MEALS IN BED HANGING FEET OVER BED DANGLING. NO NEW CONCERNS NOTED. PT HAS BEEN DESIREOUS TO REST TODAY. PENDING SNF PLACEMENT. BED IN LOW POSITION, CALL LITE IN REACH, CALLS APPROP
--- NOTE | 2021-12-16 05:22 | NUR ---
SHIFT SUMMARY: PT IS A/OX4. RT BKA SOCK AND DRESSING ARE CDI. HUFFMAN CATH IS PATENT W/ CLEAR AND CATRACHITA URINE. THE PT IS A 2 PA TO BSC/CHAIR. HE DID RECEIVE A NORCO 10 MG @ 2100. PT STILL NEEDS A BM AND IS ON THE BOWEL PROTOCOL. CALL LIGHT IS WITHIN REACH AND WE'LL CONTINUE TO MONITOR.
--- NOTE | 2021-12-16 18:24 | NUR ---
SHIFT SUMMARY A/O THOUGH PT IS FORGETFUL AND OFTEN REPEATS HIMSELFT SEVERAL TIMES. VERY WEAK c TRANFERING AND IS A MAX ASSIST 2 PERSON HE IS UNABLE TO BEAR ANY WEIGHT ON HIS LLE. RLE HAS STUMP SOCK IN PLACE AND IS C/D/I, ENCOURAGED PO INTAKE WELL WORKING WITH PT/OT. NO ACUTE EVENTS THIS SHIFT. CALL LIGHT IN REACH, WILL CTM AND REPORT TO ONCOMING EB RN.
--- NOTE | 2021-12-17 04:30 | NUR ---
SHIFT SUMMARY: PT IS A/OX4. 2 PA, GAIT TO BSC. CONTACT FOR MRSA. RT BKA HAS STUMP SOCK AND DRESSING CDI. PT DID RECEIVE PRN NORCO 10 @ 2200. ARMIDA IS PATENT WITH CLEAR & YELLOW OUTPUT. PT HAS BEEN WORKING WITH PT/OT, HE HAS A TRAPEZE IN THE ROOM FOR ADDITIONAL EXERCISE AND REPOSITIONING. PT IS A SNF PLACEMENT. CALL LIGHT IS WITHIN REACH.
[2021-12-17 05:00] LABS: BASOPHILS ABSOLUTE AUTO 0.07 K/mm3 (0.00-0.23); BASOPHILS PERCENT AUTO 1 % (0-2); EOSINOPHILS ABSOLUTE AUTO 0.19 K/mm3 (0.00-0.68); EOSINOPHILS PERCENT AUTO 3 % (0-6); Hematocrit 27.5 % (37.0-53.0); Hemoglobin 8.9 g/dL (13.5-17.5); IMMATURE GRAN ABSOLUTE AUTO 0.09 K/mm3 (0.00-0.10); IMMATURE GRAN PERCENT AUTO 1 % (0-1); LYMPHOCYTES ABSOLUTE AUTO 1.56 K/mm3 (0.84-5.20); LYMPHOCYTES PERCENT AUTO 22 % (21-46); MONOCYTES ABSOLUTE AUTO 0.45 K/mm3 (0.16-1.47); MONOCYTES PERCENT AUTO 6 % (4-13); Mean Corpuscular HGB 30.3 pg (26.0-34.0); Mean Corpuscular HGB Conc 32.4 g/dL (31.5-36.5); Mean Corpuscular Volume 94 fL (80-100); Mean Platelet Volume 9.2 fL (9.1-12.4); NEUTROPHILS ABSOLUTE AUTO 4.82 K/mm3 (1.96-9.15); NEUTROPHILS PERCENT AUTO 67 % (41-73); Platelet Count 505 K/mm3 (150-400); RDW Coefficient Variation 18.3 % (11.7-14.2); RDW Standard Deviation 61.5 fL (35.1-46.3); Red Blood Cell Count 2.94 M/mm3 (4.30-5.90); White Blood Cell Count 7.18 K/mm3 (4.00-11.30)
[2021-12-17 05:35] LABS: Anion Gap 5 mmol/L (6-16); Blood Urea Nitrogen 9 mg/dL (8-24); Bun/Creatinine Ratio 14.6 (12.0-20.0); CO2, Blood 29 mmol/L (21-32); Calcium, Blood 8.3 mg/dL (8.5-10.1); Chloride, Blood 104 mmol/L (98-108); Creatinine, Blood 0.62 mg/dL (0.60-1.20); Glomerular Filtration Rate >60 (60-); Glucose, Blood 87 mg/dL (70-99); Potassium, Blood 3.9 mmol/L (3.5-5.5); Sodium, Blood 138 mmol/L (136-145)
--- NOTE | 2021-12-17 11:35 | NUR ---
Pt. is sitting up in recliner and welcomes my visit. Pt. initiaally verbalizes that he had been expecting a spiritual care visit, and hoped it would have happened sooner. Normalize the Pt. experience and build rapport. Pt. is very unsettled about the care for his mother, and the cost of longterm facilities. Through theraputic listening and pastoral counseling services manager help Pt. focus on the things he CAN control, (Particualarly PT). Establish rapport and pray for Pt. Pt. seems very tired. Pt. verbalized gratitude for the spiritual care visit.
--- NOTE | 2021-12-17 18:19 | NUR ---
SHIFT SUMMARY PT A&OX4, VSS/RA, RORO PO, HUFFMAN PATENT & DRAINING YELLOW URINE, DENIES NEED FOR PAIN MED T/O SHIFT, STAND PIVOT TRANSFER TO CHAIR WITH 2 PP FWW & GB - PT DID A GOOD JOB IN THE AM TRANSFERRING TO CHAIR, BUT THEN WAS WEAK AND TIRED ON TRANSFER BACK TO BED AND STAND PIVOT WAS MUCH MORE DIFFICULT/SLIDE BOARD IN ROOM NOW FOR PT TO USE FOR TRANSFERS. WILL REPORT TO ONCBEKA PARSNO RN.
[2021-12-18 05:05] LABS: BASOPHILS PERCENT AUTO 1 % (0-2); EOSINOPHILS ABSOLUTE AUTO 0.22 K/mm3 (0.00-0.68); EOSINOPHILS PERCENT AUTO 3 % (0-6); Hematocrit 29.1 % (37.0-53.0); Hemoglobin 9.1 g/dL (13.5-17.5); IMMATURE GRAN ABSOLUTE AUTO 0.08 K/mm3 (0.00-0.10); IMMATURE GRAN PERCENT AUTO 1 % (0-1); LYMPHOCYTES ABSOLUTE AUTO 1.52 K/mm3 (0.84-5.20); LYMPHOCYTES PERCENT AUTO 21 % (21-46); MONOCYTES ABSOLUTE AUTO 0.49 K/mm3 (0.16-1.47); MONOCYTES PERCENT AUTO 7 % (4-13); Mean Corpuscular HGB 29.6 pg (26.0-34.0); Mean Corpuscular HGB Conc 31.3 g/dL (31.5-36.5); Mean Corpuscular Volume 95 fL (80-100); Mean Platelet Volume 9.8 fL (9.1-12.4); NEUTROPHILS ABSOLUTE AUTO 4.87 K/mm3 (1.96-9.15); NEUTROPHILS PERCENT AUTO 67 % (41-73); Platelet Count 486 K/mm3 (150-400); RDW Coefficient Variation 18.4 % (11.7-14.2); RDW Standard Deviation 62.6 fL (35.1-46.3); Red Blood Cell Count 3.07 M/mm3 (4.30-5.90); White Blood Cell Count 7.28 K/mm3 (4.00-11.30)
--- NOTE | 2021-12-18 05:11 | NUR ---
SHIFT SUMMARY 71 YR M ADMITTED ON 12/07/21 FOR SEPSIS DUE TO A RIGHT FOOT ULCER. FULL CODE. PT DID HAVE RIGHT BKA ON 12/09/21. HE IS CURRENTLY AWAITING PLACEMENT IN A SNF. HE APPEARS TO BE ADJUSTING WELL TO THE AMPUTATION AND IS PLEASANT AND COOPERATIVE. HE DOES SEEM TO GET ANXIOUS AT TIMES SUCH WHEN HE IS UNABLE TO ADJUST HIMSELF IN THE BED.
[2021-12-18 05:35] LABS: Anion Gap 5 mmol/L (6-16); Blood Urea Nitrogen 7 mg/dL (8-24); Bun/Creatinine Ratio 11.6 (12.0-20.0); CO2, Blood 29 mmol/L (21-32); Calcium, Blood 8.6 mg/dL (8.5-10.1); Chloride, Blood 105 mmol/L (98-108); Glomerular Filtration Rate >60 (60-); Glucose, Blood 81 mg/dL (70-99); Potassium, Blood 3.8 mmol/L (3.5-5.5); Sodium, Blood 139 mmol/L (136-145)
--- NOTE | 2021-12-18 13:07 | NUR ---
WOUND CARE NOTE- DURING OUR MORNING ASSESSMENT PT COMPLAINED OF A SORE BUTT AND WE NOTICED BRUISING ON THE L AND R GLUTEUS AND A SMALL OPEN WOUND ON THE RIGHT. WE WIPED DOWN THE AREA WITH A WET WIPE AND DRESSED THE WOUND WITH A MEPILEX. AFTER DRESSING WE WORKED WITH THE PATIENT TO POSITION HIM TO WHERE HE SAID HE WAS COMFORTABLE AND HIS BUTT FELT BETTER.
--- NOTE | 2021-12-18 15:58 | NUR ---
Upon receiving a referral for music therapy, I visit pt. Pt talks about his history of trials and struggles and of all he has been able to overcome. He shares his spiritual journey as well. I provide 30 minutes of soft therapeutic guitar playing and provide prayer. Pt states that he was greatly encouraged by the time and attention and that he was soothed and "distract in a good way" by the music.
--- NOTE | 2021-12-18 18:06 | NUR ---
SHIFT SUMMARY- PT HAS HAD NO ACUTE CHANGE THIS SHIFT. MEDICATED FOR PAIN WITH MORNING MEDICATIONS. PT BIGGEST COMPLAINT WAS BUTT PAIN, HE WAS SCOOTING LEFT AND RIGHT UP AND DOWN IN THE BED IN AN ATTEMPT TO RELIEVE THE PAIN. PT WAS ROLLED AND IT WAS NOTED THAT HIS RIGHT AND LEFT GLUTEUS HAS EXCORIATED SKIN ON IT (APPEARS TO BE FRICTION BURN) THE RIGHT SIDE IS A LITTLE OPEN AND BLEEDING, PARTIAL LINNEN CHANGE DONE, PLACED MEPILEX ON THE RIGHT AND THE LEFT SIDES. PT STATED THIS EVENING THE PAIN IS MUCH BETTER. PT SITTING UP IN BED CALL LIGHT IN REACH NO S&S OF DISTRESS NOTED. PT DENIED THE NEED FOR PAIN MEDICATION WHEN ASKED AT 1810. WILL CTM AND PASS ON TO NIGHT RN IN BEDSIDE REPORT.
--- NOTE | 2021-12-19 04:56 | NUR ---
PT A&O x 4. VS STABLE. PT WAS CALM AND COOPERATIVE WITH NO ANXIETY. PT ASSISTED IN REPOSITIONING WITH OVERHEAD TRAPEZE. PT SLEPT FOR THE ENTIRETY OF THE SHIFT AFTER RECEIVING EVENING MEDS. PT IS CURRENTLY SLEEPING WITH CALL LIGHT WITHIN REACH.
--- NOTE | 2021-12-19 11:21 | NUR ---
WHEELE CHAIR AMBULATION AND ADLS- PT SELF PROPELLED ABOUT 35 FEET IN A WC AND I WALKED HIM AROUND FOR 10 MINS. PT WAS WITH THE PATIENT AND WAS CONCERNED ABOUT HIS FOOT. WE NOTICED LOTS OF FLAKEY SKIN ON HIS LEFT FOOT, ESPECIALLY BETWEEN THE TOES. I GAVE HIM A FOOT BATH AND REMOVED MUCH OF THE SKIN. PT ALSO REQUESTED A BED BATH, SHAVE AND HAIRCUT. MESSI, RN AND WAITER/WAITRESS CLUB DID THESE ADLS, PT WAS PLEASED.
--- NOTE | 2021-12-19 18:37 | NUR ---
SHIFT SUMMARY - PT REMAINS AOX4, NO S/S OF DISTRESS T/O SHIFT. IN THE MORNING PT STATED HE WAS FEELING DEPRESSED. AFTER HIS PT I TOOK HIM FOR A WC RIDE AND HE SELF PROPELLED 35 FEET. WE NOTICED HIS FEET HAD LARGE AMOUNTS OF SKIN ON THEM, ESPECIALLY BETWEEN THE TOES. I GAVE PT A WARM FOOT BATH, REMOVING MOST OF THE EXCESS SKIN. NO SIGNS OF INFECTION AT THAT TIME. PT STATED HE DESIRED A SHAVE, HAIRCUT AND BET BATH. WITH THE LENS AND FRAMES PRESCRIPTION CLERK WE GAVE DID THESE ADLS AND PT SAID HE WAS FEELING MUCH BETTER. MID SHIFT PT HAD A BM USING A BEDPAN WHICH HE STATED WAS A GREAT RELIEF. PT STATED HIS APETITE, WHICH WAS GONE, HAS NOW RETURNED AFTER HIS BM. PT STATES HE WOULD LIKE A WESTERN GENRE BOOK FOR ENTERTAINMENT, I SEARCHED THE FLOOR AND WAS UNABLE TO FIND ONE. WILL PASS INFO TO NIGHT RN IN REPORT.
--- NOTE | 2021-12-20 04:27 | NUR ---
PT REMAINS A&O X 4. VS STABLE. PT WAS CALM AND COOPERATIVE. PT STATED FEELING GOOD AFTER DAY SHIFT AND GETTING A BED BATH, SHAVE, AND HAVING FIRST BM SINCE 12/16/21. MOISTERIZING LOTION WAS APPLIED TO THE L FOOT. PT ASSISTED IN REPOSITIONING WITH OVERHEAD TRAPEZE. AFTER 2100 MED PASS PT PROCEEDED TO SLEEP THE ENTIRETY OF SHIFT. UNABLE TO LOCATE ANY OLD WESTERN LITERATURE DURING CLINICAL SOCIOLOGIST PER PT REQUEST AND DAY SHIFT NOTIFICATION. PT IS CURRENTLY SLEEPING WITH CALL LIGHT WITHIN REACH.
--- NOTE | 2021-12-20 06:12 | NUR ---
I AM IN AGREEMENT WITH THE STUDENT NOTES AND DOCUMENTATION FOR THE LAST TWO NOC SHIFTS.
--- NOTE | 2021-12-20 17:46 | NUR ---
BED WOUND UPDATE- IN THE PAST FEW DAYS PT HAS COMPLAINED OF A SORE BUTT, HOWEVER REFUSED ADVICE OF STAFF TO LAY ON HIS SIDE. YESTERDAY HE HAD WHAT APPEARED TO BE A SMALL SHEAR WOUND ON HIS RIGHT BUTTOCKS, AND A LARGE RED AREA COVERING BOTH BUTTOCKS. TODAY DURING ASSESSMENTS I NOTICED A WOUND FORMING ON HIS LEFT BUTTOCKS NEAR THE INTERGLUTEAL CLEFT, AND NEW SKIN BREAKDOWN ON THE MIDDLE OF THE LEFT GLUTEAL. I REMOVED THE OLD MEPILEX BANDAGES FROM BOTH SIDES, CLEANED THE AREA WITH WOUND CLEANSER AND GAUZE, APPLIED CALAZIME SKIN PROTECTANT CREAM TO ALL WOUNDS, AND REAPPLIED NEW MEPILEX BANDAGES. PT IS NOW LYING ON HIS SIDE AND HAS BEEN ADVISED TO DO SO MUCH POSSIBLE TO PROMOTE HEALING.
--- NOTE | 2021-12-20 20:58 | NUR ---
SHIFT SUMMARY- PT HAS SHEER WOUNDS ON HIS BUTTOX WHICH WERE COVERED WITH MEPILEX. THE RIGHT SIDE WAS OPEN YESTERDAY HOWEVER TODAY THE LEFT SIDE HAS AN OPEN AREA. PT WAS ENCOURAGED TO REPOSITION WHICH HE DECLINED PREVIOUSLY ( WELL BATHING UNTIL YESTERDAY) MEPILEX WAS REPLACED IN BOTH AREAS WITH A SMALL AMOUNT OF BARRIER CREAM OVER THE OPEN SPOTS TO PREVENT STICKING TO THE WOUND BED. PT HAD A BM YESTERDAY ATTEMPTED TO USE THE BED HENDERSON THIS EVENING AT SHIFT CHANGE WITH NO RESULT. PT DECLINED BEDSIDE REPORT ASKING FOR THE BED HENDERSON TO BE PLACED AND PRIVACY.
--- NOTE | 2021-12-21 04:54 | NUR ---
SHIFT SUMMARY 71 YR M ADMITTED ON 12/07/21 FOR SEPSIS. FULL CODE. NO ACUTE CHANGES THIS SHIFT. PT WAS ENCOURAGED TO BE REPOSITIONED TO HIS SIDE AND WAS ADVISED OF THE RISK OF PRESSURE ULCERS. HE DID AGREE TO BE TURNED ON HIS RIGHT SIDE BUT STATED THAT HE DID NOT WANT TO STAY THAT WAY. HE IS MOST COMFORTABLE ON HIS BACK. PT GOT UP AND SAT IN THE CHAIR THIS EVENING FOR ABOUT AN HOUR. IT WAS A 2 PERSON ASSIST AND THE PT WAS ENCOURAGED TO USE HIS GOOD FOOT TO ASSIST US IN MOVING HIM. HE DID NOT TOLERATE THE TRANSFER WELL HE IS AFRAID OF FALLING. HE DID HOWEVER ADMIT THAT IT FELT GOOD TO SIT IN THE CHAIR FOR AWHILE.
--- NOTE | 2021-12-21 17:58 | NUR ---
SUMMARY- PT A/O X3, REPEATS HIMSELF, HAS DECREASED STM. VERY RESISTANT TO GET UP OOB. UP FOR LUNCH ATTEMPTED TO USE REDI LIFT AND FAILED. 2 STAFF WITH GAIT BELT BASICALLY LIFTED HIM IN A PIVOT TX, BUT PT ABLE TO BEAR VERY LITTLE WEIGHT ON REMAINING LEG- HE IS RIGID AND EXTREMELY AFRAID OF FALLING. MIN ATTEMPT TO HELP IN TRANSFERS. FAILED PT AND PHYSICAL THERAPY WAS UNABLE TO GET HIM FROM CHAIR TO BED. RN AND ACCREDITED LEGAL SECRETARY HAD TO AGAIN LIFT WITH GAIT BELT AND LIFT WITH GAIT BELT PIVOT TURN TO BED. PT'S PAIN CONTROLLED WITH NORCO 10MG APPROX Q4. TOOK ABOUT 3HOUR NAP FROM [id number]. MEPILEX INTACT TO REPORTED EXCORIATED AREAS. HUFFMAN CATH CARE. PERINIUM BREAKDOWN AND RASH. WASHED ALL AND APPLIED SKIN BARRIER AND GOING TO GET ANTIFUNGAL POWDER ORDERED. PLAN FOR SNF BUT ARRANGING FINANCIAL ISSUES.
--- NOTE | 2021-12-22 04:41 | NUR ---
SHIFT SUMMARY 71 YR M ADMITTED ON 12/07/21 FOR R FOOT ABSCESS AND ULTIMATELY R BKA. FULL CODE. NO ACUTE CHANGES OVERNIGHT BUT THIS NURSE DID NOTICE A CHANGE IN PT'S ATTITUDE FROM THE NIGHT BEFORE. WHILE USING THE TRAPEZE BAR TO PULL HIMSELF UP IN BED HE STATED THAT HE WAS NOT GOING TO GIVE UP AND THAT HE WOULD KEEP TRYING UNTIL HE WAS ABLE TO CARE FOR HIMSELF. UNTIL THIS POINT HE HAS BEEN MOSTLY UNWILLING TO ATTEMPT TO PARTICIPATE IN HIS OWN CARE. HE DOES STILL APPEAR ANXIOUS AND IS OPENLY VERBAL ABOUT HIS FEAR OF FALLING.
--- NOTE | 2021-12-22 20:43 | NUR ---
SUMMARY- PT SITS AT THE EDGE OF THE BED FOR MEALS. DECLINED GETTING UP INTO A CHAIR TODAY. PAIN IN RLE CONTROLLED WITH LORTAB 10MG APPROX Q4-6HR. TOLERATING FOOD AND FLUIDS. PASSING GAS BUT NO BM TODAY. PLAN FOR PLACEMENT BUT WORKING OUT FINANCIAL AND PLACE.
--- NOTE | 2021-12-23 07:30 | NUR ---
SHIFT SUMMARY NO ACUTE CHANGES THIS SHIFT. AOX4. VSS. REPORTS 8/10 PAIN IN R BKA, HOWEVER STATES THAT PAIN LEVEL IS TOLERABLE. TURNED & REPOSITIONED PRN. AWAITING SAFE DC PLAN. CALL LIGHT IN REACH & PT ABLE TO MAKE NEEDS KNOWN.
--- NOTE | 2021-12-24 04:37 | NUR ---
SHIFT SUMMARY NO ACUTE CHANGES THIS SHIFT. AOX3. SLOW TO RESPOND. FORGETFUL. REPORTED 5/10 PAIN IN R BKA, MEDICATED 1X c NORCO & PT DENIED FURTHER DISCOMFORT. DENIES N/V OR DYSPNEA. AWAITING DC PLAN. CALL LIGHT IN REACH. WILL MONITOR.
--- NOTE | 2021-12-25 05:29 | NUR ---
SHIFT SUMMARY NO ACUTE CHANGES THIS SHIFT. AOX3-ONLY FORGETFUL DATE. SLOW TO RESPOND. VSS. REPORTED 9/10 PAIN IN R BKA, MEDICATED 1X c NORCO LAST NIGHT. DENIES N/V OR DYSPNEA. CALL LIGHT IN REACH & PT ABLE TO MAKE NEEDS KNOWN. WILL MONITOR.
[2021-12-26 04:48] LABS: Hematocrit 32.6 % (37.0-53.0); Hemoglobin 10.4 g/dL (13.5-17.5)
--- NOTE | 2021-12-26 05:56 | NUR ---
Rn Summary: Pt has been very pleasant and cooperative. Pt stated he had no pain at bedtime and he has slept well. Pt has howard cath for retention and had output of 750cc. Drsg to stump is C/D/I, with protective sock. Mirlax was held due to 4 BM's last 24 hours. Hgb is 10.4. Plan is for probable DC to [facility] today.
[2021-12-26 14:13] LABS: Influenza A, PCR NEGATIVE (NEGATIVE); Influenza B, PCR NEGATIVE (NEGATIVE); Resp Syncytial Virus, PCR NEGATIVE (NEGATIVE); SARS-Cov-2 (COVID-19) PCR, MMC NEGATIVE (NEGATIVE)
[2021-12-26] MEDS ORDERED: Acetaminophen325 M1 PO (14:58)
[2021-12-26] MEDS ORDERED: FINA5 PO (14:59)
[2021-12-26] MEDS ORDERED: ELIQUIS5 M2 PO (14:59)
[2021-12-26] MEDS ORDERED: Norco 10-325 T1 EACH PO (14:59)
[2021-12-26] MEDS ORDERED: MIRT15 PO (15:00)
[2021-12-26] MEDS ORDERED: MELA3 PO (15:00)
[2021-12-26] MEDS ORDERED: DULCOLAX400 MG/5 M PO (15:00)
[2021-12-26] MEDS ORDERED: MIRALAX17 GM PO (15:01)
[2021-12-26] MEDS ORDERED: SERT50 PO (15:01)
--- NOTE | 2021-12-26 16:43 | NUR ---
DISCHARGE NOTE PATIENT DISCHARGED AT 1600 VIA WHEELCHAIR WITH [facility]. PATIENT'S HUFFMAN WAS LEFT IN PER MD STARKS. PATIENT'S BELONGINGS WITH THEM AT DISCHARGE. VSS. SLIDE BOARD TRANSFER TO WHEELCHAIR TWO ASSIST. NO IV AT DISCHARGE. PATIENT'S GLASSES ON AT TIME OF DISCHARGE.
== END 2021-12-26 16:38 | DRG 854 ==
LOC: ER 02:03 → MEDS 06:31
PROVIDERS: Emergency Medicine; Family Medicine; Hospitalist; Orthopaedic Surgery; Student in an Organized Health Care Education/Training Program; ADMIT Family Medicine
PROC: 3E03329 Introduction of Other Anti-infective into Peripheral Vein, Percutaneous Approach (ICD-10-PCS; 2021-12-07)
PROC: 0Y6H0Z1 Detachment at Right Lower Leg, High, Open Approach (ICD-10-PCS; principal; 2021-12-09 12:30)
DX: A41.9 Sepsis, unspecified organism (principal); L03.115 Cellulitis of right lower limb; I82.401 Acute embolism and thrombosis of unspecified deep veins of right lower extremity; M86.8X7 Other osteomyelitis, ankle and foot; Z20.822 Contact with and (suspected) exposure to COVID-19; E87.6 Hypokalemia; D75.839 Thrombocytosis, unspecified; D63.1 Anemia in chronic kidney disease; F32.A Depression, unspecified; F43.21 Adjustment disorder with depressed mood; L97.519 Non-pressure chronic ulcer of other part of right foot with unspecified severity; R19.7 Diarrhea, unspecified; N40.0 Benign prostatic hyperplasia without lower urinary tract symptoms; M13.869 Other specified arthritis, unspecified knee; I95.9 Hypotension, unspecified; I10 Essential (primary) hypertension; M06.9 Rheumatoid arthritis, unspecified; D72.829 Elevated white blood cell count, unspecified; Z98.890 Other specified postprocedural states; Z79.899 Other long term (current) drug therapy; Z87.891 Personal history of nicotine dependence; Z59.01 Sheltered homelessness
CPT/HCPCS: 0241U; 36415; 51701; 51702; 71045; 73600; 73701; 73721; 80048; 80053; 80202; 81001; 82270; 82607; 82746; 83605; 83880; 84484; 85014; 85018; 85025; 85045; 85520; 85610; 85730; 86141; 86850; 86900; 86901; 87040; 87070; 87075; 87077; 87086; 87147; 87186; 87205; 88307; 88311; 93005; 93010; 93971; 94760; 96365; 96366; 96375; 97110; 97112; 97129; 97140; 97162; 97166; 97530; 97535; 99285-25; A9270; J0295; J0690; J0696; J1100; J1644; J2250; J2405; J2704; J3010; J3370; J3480; J7040; J7050; J7120; Q9967

== ENCOUNTER 2022-09-22 23:24 | Emergency (ER) | payer OTHER ==
[~2022-09-22] VITALS: Ht 175.3 cm; Wt 83.0 kg
[~2022-09-22 23:24] MED LIST changes: +Acetaminophen325 M1 PO; +CEFD300 PO; +DULCOLAX400 MG/5 M PO; +ELIQUIS5 M2 PO; +GALZIN50 MG PO; +MELA3 PO; +METHOTREXATE2.5 M1 PO; +MIRALAX17 GM PO; +MIRT15 PO; +Norco 10-325 T1 EACH PO; +SERT50 PO
[2022-09-23 00:05] LABS: Source, Urine Foley catheter
[2022-09-23 01:02] LABS: Appearance, Urine Turbid (Clear); Bilirubin, Urine Neg (Neg); Blood, Urine 4+ (Neg); Color, Urine Yellow (P-Yellow); Glucose Qualitative, Urine Neg (Neg); Ketones, Urine Neg (Neg); Leukocyte Esterase, Urine 3+ (Neg); Nitrite, Urine Pos (Neg); Protein, Urine 3+ (Neg); Specific Gravity, Urine 1.015 (1.003-1.022); Urobilinogen, Urine NORM (Normal); pH, Urine 6.5 (5.0-8.0)
[2022-09-23 01:18] LABS: Bacteria Mod /hpf; Squamous Epithelial Cells Rare /hpf (Few); White Blood Cells, Urine TNTC /hpf (0-5)
[2022-09-23] MEDS ORDERED: CEFD300 PO (01:42)
== END 2022-09-23 02:22 | disposition home or self-care (01) ==
LOC: ER 23:24
PROVIDERS: Emergency Medicine
DX: T83.511A Infection and inflammatory reaction due to indwelling urethral catheter, initial encounter (principal); N39.0 Urinary tract infection, site not specified; T83.098A Other mechanical complication of other urinary catheter, initial encounter; I10 Essential (primary) hypertension; Z79.01 Long term (current) use of anticoagulants; Z79.899 Other long term (current) drug therapy; Y84.6 Urinary catheterization as the cause of abnormal reaction of the patient, or of later complication, without mention of misadventure at the time of the procedure
CPT/HCPCS: 51702; 81001; 99283-25; A9270

== ENCOUNTER 2022-12-27 00:33 | Emergency (ER) | payer OTHER ==
[~2022-12-27] VITALS: Ht 175.3 cm; Wt 83.9 kg
[2022-12-27 01:07] LABS: Source, Urine Foley catheter
[2022-12-27 01:11] LABS: Appearance, Urine Turbid (Clear); Bilirubin, Urine Neg (Neg); Blood, Urine 4+ (Neg); Color, Urine Yellow (P-Yellow); Glucose Qualitative, Urine Neg (Neg); Ketones, Urine Neg (Neg); Leukocyte Esterase, Urine 3+ (Neg); Nitrite, Urine Neg (Neg); Protein, Urine 3+ (Neg); Urobilinogen, Urine NORM (Normal)
[2022-12-27 01:20] LABS: Amorphous Light (0-Heavy); Bacteria Many /hpf; Squamous Epithelial Cells Not Seen /hpf (Few); White Blood Cells, Urine TNTC /hpf (0-5)
[2022-12-27] MEDS ORDERED: CEFD300 PO (01:30)
[2022-12-27 02:45] VITALS: BP 92/51
== END 2022-12-27 02:57 | disposition home or self-care (01) ==
LOC: ER 00:33
PROVIDERS: Emergency Medicine
DX: T83.511A Infection and inflammatory reaction due to indwelling urethral catheter, initial encounter (principal); T83.091A Other mechanical complication of indwelling urethral catheter, initial encounter; I10 Essential (primary) hypertension; Z79.01 Long term (current) use of anticoagulants; Z79.899 Other long term (current) drug therapy; X58.XXXA Exposure to other specified factors, initial encounter
CPT/HCPCS: 51702; 51798; 81001; 87077; 87086; 87186; 99284-25; A9270

== ENCOUNTER 2023-01-03 15:47 | Inpatient (IN) | payer OTHER ==
[~2023-01-03] VITALS: Ht 175.3 cm; Wt 68.9 kg
[2023-01-03 16:16] LABS: BASOPHILS ABSOLUTE AUTO 0.04 K/mm3 (0.00-0.23); BASOPHILS PERCENT AUTO 1 % (0-2); EOSINOPHILS ABSOLUTE AUTO 0.17 K/mm3 (0.00-0.68); EOSINOPHILS PERCENT AUTO 2 % (0-6); Hemoglobin 9.3 g/dL (13.5-17.5); IMMATURE GRAN ABSOLUTE AUTO 0.06 K/mm3 (0.00-0.10); IMMATURE GRAN PERCENT AUTO 1 % (0-1); LYMPHOCYTES ABSOLUTE AUTO 0.94 K/mm3 (0.84-5.20); LYMPHOCYTES PERCENT AUTO 13 % (21-46); MONOCYTES ABSOLUTE AUTO 0.59 K/mm3 (0.16-1.47); MONOCYTES PERCENT AUTO 8 % (4-13); Mean Corpuscular HGB 26.9 pg (26.0-34.0); Mean Corpuscular HGB Conc 32.1 g/dL (31.5-36.5); Mean Corpuscular Volume 84 fL (80-100); Mean Platelet Volume 8.8 fL (9.1-12.4); NEUTROPHILS ABSOLUTE AUTO 5.52 K/mm3 (1.96-9.15); NEUTROPHILS PERCENT AUTO 76 % (41-73); Platelet Count 452 K/mm3 (150-400); RDW Coefficient Variation 14.6 % (11.7-14.2); RDW Standard Deviation 44.6 fL (35.1-46.3); Red Blood Cell Count 3.46 M/mm3 (4.30-5.90); White Blood Cell Count 7.32 K/mm3 (4.00-11.30)
[2023-01-03 16:25] LABS: Calcium, Ionized (POC) 1.06 mmol/L (1.10-1.46); Chloride (POC) 99 mmol/L (98-108); Creatinine (POC) 0.9 mg/dL (0.8-1.3); Glucose (ISTAT POC) 99 mg/dL (70-99); Hemoglobin (POC) 10.2 g/dL (13.5-17.5); Potassium (POC) 3.8 mmol/L (3.5-5.5); Sodium (POC) 131 mmol/L (135-148); Total CO2 (POC) 21 mmol/L (21-32)
[2023-01-03] MEDS ORDERED: ATORVASTATIN CA20 MG PO (16:30)
[2023-01-03 16:51] LABS: Albumin, Blood 2.3 g/dL (3.4-5.0); Albumin/Globulin Ratio 0.5 (0.8-1.8); Bilirubin, Total 0.5 mg/dL (0.1-1.0); Calcium, Blood 8.3 mg/dL (8.5-10.1); Creatinine, Blood 0.89 mg/dL (0.60-1.20); Potassium, Blood 3.8 mmol/L (3.5-5.5); Total Protein, Blood 7.3 g/dL (6.4-8.2)
[2023-01-03 17:13] LABS: Source, Urine Foley catheter
[2023-01-03 17:17] LABS: Appearance, Urine Cloudy (Clear); Bilirubin, Urine Neg (Neg); Blood, Urine 3+ (Neg); Color, Urine Yellow (P-Yellow); Glucose Qualitative, Urine Neg (Neg); Ketones, Urine 1+ (Neg); Leukocyte Esterase, Urine 3+ (Neg); Nitrite, Urine Neg (Neg); Protein, Urine 2+ (Neg); Urobilinogen, Urine NORM (Normal)
[2023-01-03 17:41] LABS: Bacteria Many /hpf; Squamous Epithelial Cells Not Seen /hpf (Few); White Blood Cells, Urine 50-100 /hpf (0-5)
[2023-01-03 17:52] LABS: Influenza A, PCR NEGATIVE (NEGATIVE); Influenza B, PCR NEGATIVE (NEGATIVE); Resp Syncytial Virus, PCR NEGATIVE (NEGATIVE); SARS-Cov-2 (COVID-19) PCR, MMC NEGATIVE (NEGATIVE)
[2023-01-03 20:06] VITALS: BP 94/63
[2023-01-04] VITALS (7 sets, daily range): BP systolic 84–113; BP diastolic 58–65
[2023-01-04 04:24] LABS: BASOPHILS ABSOLUTE AUTO 0.03 K/mm3 (0.00-0.23); BASOPHILS PERCENT AUTO 1 % (0-2); EOSINOPHILS ABSOLUTE AUTO 0.12 K/mm3 (0.00-0.68); EOSINOPHILS PERCENT AUTO 2 % (0-6); Hematocrit 24.4 % (37.0-53.0); Hemoglobin 7.9 g/dL (13.5-17.5); IMMATURE GRAN ABSOLUTE AUTO 0.04 K/mm3 (0.00-0.10); IMMATURE GRAN PERCENT AUTO 1 % (0-1); LYMPHOCYTES ABSOLUTE AUTO 1.02 K/mm3 (0.84-5.20); LYMPHOCYTES PERCENT AUTO 21 % (21-46); MONOCYTES ABSOLUTE AUTO 0.45 K/mm3 (0.16-1.47); MONOCYTES PERCENT AUTO 9 % (4-13); Mean Corpuscular HGB 27.1 pg (26.0-34.0); Mean Corpuscular HGB Conc 32.4 g/dL (31.5-36.5); Mean Corpuscular Volume 84 fL (80-100); Mean Platelet Volume 9.1 fL (9.1-12.4); NEUTROPHILS ABSOLUTE AUTO 3.27 K/mm3 (1.96-9.15); NEUTROPHILS PERCENT AUTO 66 % (41-73); Platelet Count 423 K/mm3 (150-400); RDW Coefficient Variation 14.6 % (11.7-14.2); RDW Standard Deviation 44.7 fL (35.1-46.3); Red Blood Cell Count 2.92 M/mm3 (4.30-5.90); White Blood Cell Count 4.93 K/mm3 (4.00-11.30)
[2023-01-04 04:47] LABS: Albumin, Blood 1.7 g/dL (3.4-5.0); Albumin/Globulin Ratio 0.4 (0.8-1.8); Bilirubin, Total 0.3 mg/dL (0.1-1.0); Calcium, Blood 7.7 mg/dL (8.5-10.1); Creatinine, Blood 0.68 mg/dL (0.60-1.20); Globulin, Blood 4.1 g/dL (2.2-4.0); Potassium, Blood 3.8 mmol/L (3.5-5.5); Total Protein, Blood 5.8 g/dL (6.4-8.2)
--- NOTE | 2023-01-04 06:27 | NUR ---
SHIFT SUMMARY ASSUMED CARE OF PT AT 1999. PT IS A/OX3-4. HEART SOUNDS REGULAR. LUNG SOUNDS DIMINISHED. PT USED BEDPAN. PT HAS CHRONIC HUFFMAN THAT ER STATED THAT THEY CHANGED. HUFFMAN DRAINING CLEAR YELLOW URINE. PT HAS R BKA, SMALL RED SPOTS ON LEG FROM PROSTETIC LIMB, PICTURES IN CHART. PT BP HAS BEEN STABLE UNTIL MORNING CHECK AT 0400. MAPS HAVE BEEN IN 60-65. HOSPITALIST NOTIFIED AND ORDERED 500ML BOLUS AND IF IT DID NOT BRING UP PRESSURE TO TRANSFER TO ICU. BOLUS INFUSING.
[2023-01-04 11:56] LABS: Percent Saturation 24.7 % (20.0-50.0)
--- NOTE | 2023-01-04 18:20 | NUR ---
SHIFT SUMMARY; ASSUMED CARE AT 0700, A/A/OX4, RIGHT LEG BKA. REPOSITIONS SELF IN BED, STUMP AND LEFT HEEL FLOATED T/O SHIFT. LR INFUSING AT 150ML/HR. CHRONIC HUFFMAN DRAINING TO GRAVITY. VSS, NO ACUTE MEDICAL CHANGES, WILL CONTINUE TO MONITOR AND TREAT UNTIL CHANGE OF SHIFT.
[2023-01-05 03:25] VITALS: BP 112/66
[2023-01-05 03:39] LABS: Hematocrit 22.7 % (37.0-53.0); Hemoglobin 7.5 g/dL (13.5-17.5); Mean Corpuscular HGB 27.4 pg (26.0-34.0); Mean Corpuscular Volume 83 fL (80-100); Mean Platelet Volume 8.5 fL (9.1-12.4); Platelet Count 379 K/mm3 (150-400); RDW Coefficient Variation 14.7 % (11.7-14.2); RDW Standard Deviation 45.1 fL (35.1-46.3); Red Blood Cell Count 2.74 M/mm3 (4.30-5.90); White Blood Cell Count 4.34 K/mm3 (4.00-11.30)
[2023-01-05 03:56] LABS: Albumin, Blood 1.7 g/dL (3.4-5.0); Anion Gap 4 mmol/L (6-16); Blood Urea Nitrogen 10 mg/dL (8-24); Bun/Creatinine Ratio 15.2 (12.0-20.0); CO2, Blood 22 mmol/L (21-32); Chloride, Blood 111 mmol/L (98-108); Creatinine, Blood 0.66 mg/dL (0.60-1.20); Glomerular Filtration Rate 98 (60-); Glucose, Blood 85 mg/dL (70-99); Magnesium, Blood 1.4 mg/dL (1.6-2.4); Phosphorus, Blood 2.4 mg/dL (2.5-4.9); Potassium, Blood 3.5 mmol/L (3.5-5.5); Sodium, Blood 137 mmol/L (136-145)
--- NOTE | 2023-01-05 06:04 | NUR ---
CHEMIST WATER PURIFICATION SUMMARY ASSUMED CARE OF THE PT AT 1900. HE IS ALERT AND ORIENTED X3-4, DOES GET INTERMITTENTLY CONFUSED AND AGITATED AT NIGHT. FOLLOWS DIRECTIONS. GIVEN TYLENOL AT HS DUE TO CHRONIC RIGHT LOWER EXTREMITY PAIN FROM BKA. PT REPORTS FEELING DIZZY MULTIPLE TIMES IN THE FIRST HALF OF THE SHIFT BUT VSS. PT ADMITS THAT HE DOES NOT LIKE THE CARE OR THE FOOD AT [facility] AND "I LIKE IT BETTER HERE". CHRONIC HUFFMAN IN PLACE, PATENT AND DRAINING YELLOW URINE. HE HAS BEEN SINUS RHYTHM WITH PVCS AND BI/TRIGEMINY AT TIMES.
[2023-01-05 07:37] VITALS: BP 126/76
--- NOTE | 2023-01-05 10:44 | NUR ---
POLST: Palliative Care [facility] and checked with [facility], and [facility] state pt has refused to fill out a POLST in the past. Pt to return to [facility] today. This RN will attempt to fill out POLST with pt if he is willing and able.
[2023-01-05] MEDS ORDERED: MAGNESIUM OXID500 MG PO (10:51)
[2023-01-05] MEDS ORDERED: VISBIOME 112.51 EACH PO (10:52)
[2023-01-05] MEDS ORDERED: LEVO750 PO (10:52)
[2023-01-05 11:42] VITALS: BP 111/80
== END 2023-01-05 14:21 | disposition home or self-care (01) | DRG 699 ==
LOC: ER 15:47 → PCU 15:48
PROVIDERS: Emergency Medicine; Internal Medicine; Nurse Practitioner Acute Care; ADMIT Hospitalist
PROC: 0T2BX0Z Change Drainage Device in Bladder, External Approach (ICD-10-PCS; principal; 2023-01-04)
DX: T83.511A Infection and inflammatory reaction due to indwelling urethral catheter, initial encounter (principal); J90 Pleural effusion, not elsewhere classified; N39.0 Urinary tract infection, site not specified; K64.9 Unspecified hemorrhoids; I10 Essential (primary) hypertension; M06.9 Rheumatoid arthritis, unspecified; I95.9 Hypotension, unspecified; D64.9 Anemia, unspecified; N40.1 Benign prostatic hyperplasia with lower urinary tract symptoms; R33.8 Other retention of urine; F32.A Depression, unspecified; K59.00 Constipation, unspecified; R13.10 Dysphagia, unspecified; E86.1 Hypovolemia; M17.11 Unilateral primary osteoarthritis, right knee; E86.0 Dehydration; E78.5 Hyperlipidemia, unspecified; Z20.822 Contact with and (suspected) exposure to COVID-19; B96.89 Other specified bacterial agents as the cause of diseases classified elsewhere; B96.5 Pseudomonas (aeruginosa) (mallei) (pseudomallei) as the cause of diseases classified elsewhere; Y84.6 Urinary catheterization as the cause of abnormal reaction of the patient, or of later complication, without mention of misadventure at the time of the procedure; Z89.611 Acquired absence of right leg above knee; Z79.1 Long term (current) use of non-steroidal anti-inflammatories (NSAID); Z79.899 Other long term (current) drug therapy; Z87.39 Personal history of other diseases of the musculoskeletal system and connective tissue; Z86.718 Personal history of other venous thrombosis and embolism; Z79.02 Long term (current) use of antithrombotics/antiplatelets; Z79.01 Long term (current) use of anticoagulants; Z79.891 Long term (current) use of opiate analgesic; Z98.890 Other specified postprocedural states
CPT/HCPCS: 0241U; 36415; 51702; 71045; 80047; 80053; 80069; 80400; 81001; 82530; 82533; 82607; 82728; 82746; 83540; 83550; 83605; 83735; 84145; 84484; 85014; 85025; 85027; 86850; 86900; 86901; 87040; 87077; 87086; 87186; 92610; 93005; 93010; 96361-59; 96365-59; 96367-59; 96372; 96375; 97110; 97112; 97162; 99285-25; A9270; G0378; J0456; J0696; J0834; J1650; J1956; J3475; J7030; J7050; J7060; J7120

== ENCOUNTER 2023-04-10 11:36 | Emergency (ER) | payer OTHER ==
[~2023-04-10] VITALS: Ht 172.7 cm; Wt 65.8 kg
[~2023-04-10 11:36] MED LIST changes: +ATORVASTATIN CA20 MG PO; +LEVO750 PO; +MAGNESIUM OXID500 MG PO; +VISBIOME 112.51 EACH PO
[2023-04-10 12:28] LABS: BASOPHILS ABSOLUTE AUTO 0.04 K/mm3 (0.00-0.23); BASOPHILS PERCENT AUTO 0 % (0-2); Base Excess Venous 4.3 mmol/L; Bicarbonate Venous 28.2 mmol/L (24.0-30.0); EOSINOPHILS ABSOLUTE AUTO 0.04 K/mm3 (0.00-0.68); EOSINOPHILS PERCENT AUTO 0 % (0-6); Hemoglobin 11.6 g/dL (13.5-17.5); IMMATURE GRAN ABSOLUTE AUTO 0.05 K/mm3 (0.00-0.10); IMMATURE GRAN PERCENT AUTO 1 % (0-1); LYMPHOCYTES PERCENT AUTO 8 % (21-46); MONOCYTES ABSOLUTE AUTO 0.81 K/mm3 (0.16-1.47); MONOCYTES PERCENT AUTO 9 % (4-13); Mean Corpuscular HGB 26.1 pg (26.0-34.0); Mean Corpuscular HGB Conc 32.2 g/dL (31.5-36.5); Mean Corpuscular Volume 81 fL (80-100); Mean Platelet Volume 9.2 fL (9.1-12.4); NEUTROPHILS ABSOLUTE AUTO 7.67 K/mm3 (1.96-9.15); NEUTROPHILS PERCENT AUTO 83 % (41-73); PCO2 Venous 36.4 mmHg (38-42); Platelet Count 415 K/mm3 (150-400); RDW Coefficient Variation 15.4 % (11.7-14.2); RDW Standard Deviation 45.7 fL (35.1-46.3); Red Blood Cell Count 4.44 M/mm3 (4.30-5.90); White Blood Cell Count 9.31 K/mm3 (4.00-11.30); pH Blood Venous 7.49 (7.34-7.37)
[2023-04-10 12:53] LABS: Albumin, Blood 2.2 g/dL (3.4-5.0); Albumin/Globulin Ratio 0.4 (0.8-1.8); Bilirubin, Total 0.7 mg/dL (0.1-1.0); Bun/Creatinine Ratio 34.1 (12.0-20.0); Calcium, Blood 9.3 mg/dL (8.5-10.1); Creatinine, Blood 0.79 mg/dL (0.60-1.20); Globulin, Blood 5.6 g/dL (2.2-4.0); Magnesium, Blood 2.1 mg/dL (1.6-2.4); Potassium, Blood 3.6 mmol/L (3.5-5.5); Total Protein, Blood 7.8 g/dL (6.4-8.2)
--- NOTE | 2023-04-10 13:08 | NUR ---
Received call from [employer] Caitlin Lima from [facility]. She reports Pt's facility sent Pt to the hospital due to not having a POLST that reflects comfort measures only. Pt is currently on hospice services with [facility]. Spoke with Dr Souza and discussed case. According to facility Pt does not have NOK or POA. Pt resting on gurney with eyes closed. Pt appears significantly weak and lethargic. Pt attempts to respond but quickly closes his eyes. Ended visit to allow Pt to rest. Pt appears comfortable with no S/S of distress at this time. Called and spoke with Pt's mother Crystal and Pt's step dad Francisco over speaker phone. Engaged in theapeutic conversation regarding goals of care. Family reports Pt's wishes are to be transfered back to facility with hospice services. Family agreeable to complete POLST over the phone. POLST completed with Pt's wishes of DNR and Comfort measures only witnessed by NADEEM Turner. Dr Souza signs POLST. Plan to send Pt back to facility to remain on hospice services. Palliative Care will remain available
[2023-04-10 14:15] VITALS: BP 130/85
== END 2023-04-10 14:24 | disposition home or self-care (01) ==
LOC: ER 11:36
PROVIDERS: Student in an Organized Health Care Education/Training Program
DX: R41.82 Altered mental status, unspecified (principal); Z76.89 Persons encountering health services in other specified circumstances; Z51.5 Encounter for palliative care; I10 Essential (primary) hypertension; E78.5 Hyperlipidemia, unspecified; Z86.718 Personal history of other venous thrombosis and embolism
CPT/HCPCS: 36415; 71045; 80053; 82140; 82803; 83605; 83690; 83735; 84145; 85025; 87040; 93005; 93010; 99285-25